=== PATIENT | male | born 2000 | race Two or more races ===

== ENCOUNTER 2024-03-07 09:46 | Emergency (ER) | payer OTHER, MEDICAID ==
[~2024-03-07] VITALS: Ht 170.2 cm; Wt 63.0 kg
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
[2024-03-07 12:03] LABS: Amphetamine Screen, Urine Neg (NEGATIVE); Barbiturate Scree,Urine Neg (NEGATIVE); Benzodiazephine Screen, Urine Neg (NEGATIVE); Cannabinoid Screen, Urine Neg (NEGATIVE); Cocaine Screen, Urine Neg (NEGATIVE); Opiate Scree,Urine Neg (NEGATIVE); Phencyclidine Screen, Urine Neg (NEGATIVE)
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
--- NOTE | 2024-03-07 16:23 | DVH ---
EXAM: CT HEAD WITHOUT CONTRAST HISTORY: fall COMPARISON: None TECHNIQUE: Axial images of the head were obtained and reformatted in coronal and sagittal planes. All CT scans at this medical facility are performed using dose modulation techniques as appropriate t o a performed exam including the following: Automated exposure control was utilized; adjustment of th e MA and/or KV according to patient size; and use of iterative reconstruction technique. CT Dose: CTDI volume is 52 mGy. Dose-length product is 832 mGy*cm FINDINGS: There is no evidence of acute intracranial hemorrhage, mass, mass effect midline shift. There is no h ydrocephalus or extra-axial fluid collection. Castillo-white matter differentiation is maintained. The visualized paranasal sinuses and mastoid air cells are clear. The calvarium is intact. IMPRESSION: 1. No acute intracranial process. HS:Y
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
[2024-03-07] MEDS: HALOPERIDOL LACTATE 5 MG/ML INJ VIAL ONE (16:44)
[2024-03-07] MEDS: diphenhdrAMINE HCL 50 MG/1 ML VL ONE (16:47)
[2024-03-07] MEDS: LORazepam 2MG/ML-1ML VIAL ONE (16:48)
[2024-03-07] MEDS: LORazepam 2MG/ML-1ML VIAL IM ONE (16:50)
[2024-03-07] MEDS: diphenhdrAMINE HCL 50 MG/1 ML VL IM ONE (16:51)
[2024-03-07] MEDS: HALOPERIDOL LACTATE 5 MG/ML INJ VIAL IM ONE (16:53)
[2024-03-07] MEDS: SODIUM CHLORIDE 0.9% 1,000 ML IV ONE (22:53)
--- NOTE | 2024-03-08 07:01 | ECG ---
[facility] Test Date: 2024-03-07 Test Time: 09:52:31 Pat Name: CHRIS JOSEPH Department: ED Room: Gender: M Operating Room Rn: ABHIJIT : [id number] Requested By: ANGELITO PETERSON Order Number: [id number] Reading MD: Phi Wood Measurements Intervals [place] Rate: 69 P: 37 FL: 154 QRS: 88 QRSD: 100 T: 59 QT: 373 QTc: 400 Interpretive Statements Sinus rhythm Atrial premature complex ST elevation suggests acute pericarditis Electronically Signed On 03-08-2024 17:16:44 PST by Phi Wood Please click the below link to view image of tracing.
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
[2024-03-08 11:00] VITALS: PULSE 77; RESP 10; O2SAT 97
[2024-03-08] MEDS ORDERED: OLANZapine 5 MG TAB PO PRN (12:45)
[2024-03-08] MEDS ORDERED: LORazepam 0.5 MG TAB PO PRN (12:45)
[2024-03-08] MEDS: SODIUM CHLORIDE 0.9% 1,000 ML IV ONE (19:56)
[2024-03-08] MEDS: OLANZapine 5 MG TAB PO ONE (22:00)
--- NOTE | 2024-03-08 22:27 | ED.PDOC ---
Departure 1 Departure Time of Disposition: 22:26 ([facility] Authorization [id number] is psychotic. Patient is now on 5150 hold. [facility] is looking for placement.) Impression: Primary Impression: Anxiety Additional Impressions: Psychosis Qualified Codes: F29 - Unspecified psychosis not due to a substance or known physiological condition Patient needs psychiatric hold for evaluation Disposition: 30 STILL A PATIENT Condition: Serious KATHRINE GRADY MD Mar 08, 2024 22:27
[2024-03-08 22:32] LABS: Basophils # (auto) 0.1 10 ^3/uL (0-0.2); Eosinophils # (auto) 0.1 10 ^3/uL (0-0.8); Hematocrit 39.5 % (41.0-53.0); Lymphocytes # (auto) 2.3 10 ^3/uL (0.4-5.4); Mean Corpuscular Hgb Conc. 35.3 g/dL (32.0-36.0); Nucleated Red Blood Cells % 0.1 %; Red Blood Cells 4.07 10^6/uL (4.5-5.90); Red Cell Distribution Width 12.4 % (11.8-14.3)
[2024-03-08 22:34] LABS: Eosinophils % (auto) 1.5 % (0.0-7.0); Lymphocytes % (auto) 26.2 % (10.0-50.0); Mean Corpuscular Hemoglobin 34.3 pg (28.0-32.0); Mean Corpuscular Volume 97.2 fL (80.0-100.0); Monocytes # (auto) 0.8 10 ^3/uL (0-1.3); Monocytes % (auto) 8.5 % (0.0-12.0); Neutrophils # (auto) 5.6 10 ^3/uL (1.6-8.6); Neutrophils % (auto) 62.8 % (37.0-80.0); Platelet Count (auto) 233 10^3/uL (140-450); White Blood Cell 8.9 10^3/uL (4.4-10.8)
[2024-03-08 23:00] LABS: Chloride 106 mmol/L (98-107); Potassium 3.8 mmol/L (3.5-5.1); Sodium 140 mmol/L (136-145)
[2024-03-08 23:01] LABS: Anion Gap 8 (5-15); Calcium 8.8 mg/dL (8.7-10.4); Carbon Dioxide 26 mmol/L (20-31)
[2024-03-08 23:06] LABS: BUN/Creatinine Ratio 12.4 (10.0-20.0); Blood Urea Nitrogen 11 mg/dL (9-23); Glucose 96 mg/dL (74-106)
[2024-03-08 23:12] LABS: Blood Alcohol < 3.0 mg/dL (<10)
[2024-03-08 23:13] LABS: Acetaminophen < 2.0 UG/ML (10.0-20.0); Salicylate < 3.0 mg/dL (-30)
[2024-03-09 10:28] VITALS: BP 110/71; PULSE 80; RESP 15; TEMP 98; O2SAT 99
== END 2024-03-09 16:25 | disposition short-term general hospital (02) ==
LOC: EDBD 09:46 → ER 09:46
DX: F41.9 Anxiety disorder, unspecified (principal); F29 Unspecified psychosis not due to a substance or known physiological condition; I49.1 Atrial premature depolarization; Z79.899 Other long term (current) drug therapy
CPT/HCPCS: 36415; 70450; 73120; 80048; 80307; 80320; 80329; 85025; 93005; 96360; 96361; 96372; 99285; J1200; J1630; J2060; J7030